=== PATIENT | male | born 1975 ===

== ENCOUNTER 2017-09-13 11:04 | Emergency (ER) | payer OTHER, SELFPAY ==
[2017-09-13 11:13] VITALS: BMI 23.5
[2017-09-13 11:15] VITALS: BP 127/81; PULSE 100; RESP 16; TEMP 99; O2SAT 97
--- NOTE | 2017-09-13 11:59 | ED PDOC ---
HPI: Male Pain Time Seen by Provider: 09/13/17 11:55 Chief Complaint (Provider): Penis lesion History Per: Patient History/Exam Limitations: no limitations Onset/Duration Of Symptoms: Days (x1) Current Symptoms Are (Timing): Still Present Associated Symptoms: denies: Urinary Symptoms Additional Complaint(s): Alek Rod is a 42 year old male, with no significant past medical history , who presents to the emergency department complaining of a penile lesion noticed yesterday. Patient was concerned which prompted ED visit. Patient states he is . He denies any fever, chills or dysuria. No further medical complaints. PMD: None provided. Past Medical History Reviewed: Historical Data, Nursing Documentation, Vital Signs Vital Signs: Last Vital Signs Temp 99 F 09/13/17 11:13 Pulse 100 H 09/13/17 11:13 Resp 16 09/13/17 11:13 BP 127/81 09/13/17 11:13 Pulse Ox 97 09/13/17 11:13 - Medical History PMH: No Chronic Diseases - Surgical History Surgical History: No Surg Hx - Family History Family History: States: No Known Family Hx - Allergies Allergies/Adverse Reactions: Allergies Allergy/AdvReac Type Severity Reaction Status Date / Time No Known Allergies Allergy Verified 09/13/17 11:56 Review of Systems ROS Statement: Except As Marked, All Systems Reviewed And Found Negative Constitutional: Negative for: Fever, Chills Genitourinary Male: Negative for: Dysuria Skin: Positive for: Lesions (on penis) Physical Exam - Reviewed Nursing Documentation Reviewed: Yes Vital Signs Reviewed: Yes - Physical Exam Appears: Positive for: Well, Non-toxic, No Acute Distress Head Exam: Positive for: ATRAUMATIC, NORMAL INSPECTION, NORMOCEPHALIC Skin: Positive for: Normal Color, Warm, Dry. Negative for: Rash Eye Exam: Positive for: Normal appearance Neck: Positive for: Painless ROM Respiratory: Negative for: Respiratory Distress Gastrointestinal/Abdominal: Positive for: Normal Exam, Soft. Negative for: Tenderness Male Genital Exam: Positive for: lesions (non-erythematous, non-tender papular lesion noted on penis.) Extremity: Positive for: Normal ROM (upper and lower extremities). Negative for : Deformity, Swelling Neurologic/Psych: Positive for: Alert, Oriented - ECG O2 Sat by Pulse Oximetry: 97 (RA) Pulse Ox Interpretation: Normal Medical Decision Making Medical Decision Making: Initial Impression: Penile lesion Initial Plan: --Chlamydia/GC RNA, TMA --RPR --Reevaluation 12:00 -Assessment discussed with patient, it appears as a sebaceous cyst but will send testing for STDs. ~ Scribe Attestation: Documented by Mark Avelar, acting as a scribe for Trevon Aguirre PA-C. Provider Scribe Attestation: All medical record entries made by the Scribe were at my direction and personally dictated by me. I have reviewed the chart and agree that the record accurately reflects my personal performance of the history, physical exam, medical decision making, and the department course for this patient. I have also personally directed, reviewed, and agree with the discharge instructions and disposition. Disposition - Clinical Impression Clinical Impression: Penile lesion - Patient ED Disposition Is Patient to be Admitted: No - Disposition Referrals: [facility] [Outside] Tano Cardona MD [Medical Doctor] - Disposition: Transfer of Care Disposition Time: 11:59 Condition: FAIR Instructions: Epidermal Cyst (DC)
== END 2017-09-13 12:49 | disposition home or self-care (01) ==
LOC: H.ER 11:04
DX: N50.9 Disorder of male genital organs, unspecified (principal)